=== PATIENT | female | born 1990 | race Caucasian/White ===

== ENCOUNTER → 2020-04-25 12:03 | Outpatient (CLI) | payer OTHER, SELFPAY ==
--- NOTE | ~2020-04-25 | MR_ITS ---
EXAMINATION: MR cervical spine wo/w con EXAM DATE: 04/25/2020 13:56 INDICATION: Multiple sclerosis. Guillain barre syndrome. Bilateral numbness, left side worse. Hand, f oot weakness. Fatigue. Balance issues. TECHNIQUE: Multi-sequential, multiplanar MR images of the cervical spine were obtained without contra st. Axial T2, axial T2 MERGE sequence. Sagittal T1, T2, T2 fat saturation images also obtained. Axi al T1 weighted sequence. Patient was then injected with 12 mL Multihance intravenous contrast and re imaged. Postcontrast axial and sagittal T1-weighted fat saturation sequences were obtained. There ar e no prior studies for comparison. FINDINGS: The spinal cord signal intensity and intrinsic morphology is normal. Cervicomedullary junc tion is normal in appearance. The vertebral bodies are aligned in the AP dimension. Vertebral body an d disc heights are well-maintained. There are no suspicious marrow signal abnormalities. Paraspinal s oft tissue is unremarkable. There is mild cervical facet arthropathy, and mild C5-6 uncovertebral cherelle nt arthropathy causing mild neural foraminal stenosis at that level. There are no areas of abnormal e nhancement on the post contrast images. IMPRESSION: 1. Normal cervical cord signal. 2. Mild arthropathy. Reviewed, dictated and finalized at location A.
--- NOTE | ~2020-04-25 | MR_ITS ---
EXAMINATION: MR brain/brain stem wo/w con EXAM DATE: 04/25/2020 13:51 INDICATION: Multiple sclerosis. Dizziness, bilateral extremity numbness, left side worse. Hand and fo ot weakness. Balance issues. Fatigue. TECHNIQUE: Magnetic resonance imaging (MRI) of the brain/brain stem obtained without contrast. Sagit macarena T1, axial diffusion, gradient echo (T2*), T1, T2, FLAIR sequences obtained. Demyelinating protoco l was utilized including sagittal FLAIR images. Patient was then injected with 12 cc intravenous Mu ltihance contrast. Axial and coronal postcontrast T1 weighted sequences obtained. There is no prior study for comparison. FINDINGS: There are no areas of restricted diffusion to suggest acute infarction. There is no acute hemorrhage seen on the T2*, a hemosiderin sensitive sequence. No intraparenchymal brain mass. The ve ntricles are normal in size. There are no extra-axial collections. Flow voids are seen in the cereb ral arteries on the T2-weighted sequences consistent with their expected patency. The orbits are unr emarkable. Soft tissue is unremarkable. IMPRESSION: 1. Normal brain MRI examination. Reviewed, dictated and finalized at location A.
[2020-04-25 13:01] LABS: Estimated Glomerular Filt Rate > 60
== END ==
DX: G35 Multiple sclerosis (principal)
CPT/HCPCS: 70553; 72156; A9577

== ENCOUNTER 2022-11-22 10:31 | Outpatient (CLI) | payer BC, SELFPAY ==
--- NOTE | ~2022-11-22 | US_ITS ---
EXAMINATION: US pelvic complete w TV DATE: 11/22/2022 11:49 INDICATION: Other specified and noninflammatory disorder, history of endometrial ablation TECHNIQUE: Multiple transabdominal and endovaginal sonographic images of the pelvis were obtained. COMPARISON: 09/17/2015 FINDINGS: The uterus measures 7.4 x 3.1 x 4.3 cm. The endometrial complex measures 6 mm. There is a 5 mm round fluid collection in the endometrial canal. The right ovary measures 2.8 x 1.4 x 1.3 cm. The left ovary measures 2.8 x 1.6 x 1.5 cm. There is normal vascular flow in the ovaries. There is no fr ee fluid in the pelvis. IMPRESSION: 1. Tiny fluid collection of the endometrial complex, likely small volume of retained secretions in a patient post endometrial ablation. Reviewed, dictated and finalized at location A. IMPRESSION: 1. Tiny fluid collection of the endometrial complex, likely small volume of ret ained secretions in a patient post endometrial ablation.
== END 2022-11-22 10:32 | disposition home or self-care (01) ==
PROVIDERS: PCP Nurse Practitioner Family; Visit Provider Nurse Practitioner Family
DX: N85.8 Other specified noninflammatory disorders of uterus (principal)
CPT/HCPCS: 76830; 76856

== ENCOUNTER 2023-12-15 10:43 | Outpatient (CLI) | payer OTHER, SELFPAY ==
--- NOTE | ~2023-12-15 | XR_ITS ---
EXAM: XR foot RT min 3V DATE: 12/15/2023 11:05 HISTORY: 3-5th digit pain, dropped object X 2 weeks ago . COMPARISON: None available. FINDINGS: Normal mineralization. No fracture or dislocation. No lytic or blastic lesion. Joint space s are maintained. No erosion or periosteal change. Soft tissues within normal limits. IMPRESSION: No acute osseous finding in the right foot. Reviewed, dictated and finalized at location K.
== END 2023-12-15 10:44 | disposition home or self-care (01) ==
LOC: CHSIMG 10:45
PROVIDERS: PCP Internal Medicine; Visit Provider Internal Medicine
DX: S99.921A Unspecified injury of right foot, initial encounter (principal)
CPT/HCPCS: 73630

== ENCOUNTER 2024-02-20 09:56 | Outpatient (CLI) | payer OTHER, SELFPAY ==
--- NOTE | ~2024-02-20 | MMUS_ITS ---
EXAMINATION: MM diagnostic aaron BI w naveed, US breast BI complete HISTORY: Mastodynia TECHNIQUE: 3-D tomosynthesis images of bilateral breast were performed and synthetic 2-D images were generated. CAD analysis was submitted and interpreted. High resolution complete bilateral breast ultr asound was performed. COMPARISON: None BREAST PARENCHYMAL COMPOSITION:Dense: The breasts are extremely dense, which lowers the sensitivity o f mammography. FINDINGS: MAMMOGRAPHIC FINDINGS: No mass lesion or distortion seen. No suspicious mammographic ossification. No suspicious mammographi c abnormality. ULTRASOUND: No solid or cystic lesion seen in either breast. There are minimally dilated ducts in the subareolar regions bilaterally. No intraductal mass evident. IMPRESSION: No evidence for malignancy. BI-RADS Category 1: Negative Reviewed, dictated and finalized at location . IMPRESSION: No evidence for malignancy. BI-RADS Category 1: Negative
== END 2024-02-20 09:57 | disposition home or self-care (01) ==
PROVIDERS: PCP Internal Medicine; Visit Provider Nurse Practitioner Family
DX: N64.4 Mastodynia (principal)
CPT/HCPCS: 76641; 77062; 77066; G0279